=== PATIENT | male | born 1990 | race Caucasian/White ===

== ENCOUNTER 2020-10-09 17:06 | Emergency (ER) | payer OTHER ==
[~2020-10-09] VITALS: Ht 180.3 cm; Wt 81.7 kg
[2020-10-09] MEDS ORDERED: AMOCLA875 PO (18:10)
== END 2020-10-09 18:18 | disposition home or self-care (01) ==
LOC: ER 17:06
DX: S20.211A Contusion of right front wall of thorax, initial encounter (principal); S81.852A Open bite, left lower leg, initial encounter; W54.0XXA Bitten by dog, initial encounter; V43.52XA Car driver injured in collision with other type car in traffic accident, initial encounter
CPT/HCPCS: 71045; 73590; 90471; 90714; 99283-25; A9270